=== PATIENT | female | born 1990 | race Caucasian/White ===

== ENCOUNTER 2017-04-19 11:41 | Emergency (ER) | payer MEDICAID ==
[~2017-04-19] VITALS: Ht 162.6 cm; Wt 60.0 kg
[2017-04-19 11:45] VITALS: Ht 162.6 cm; Wt 60.0 kg
[2017-04-19] MEDS ORDERED: ACET500C5 PO (12:17)
--- NOTE | 2017-04-19 12:29 | ERD ---
ER Documentation Chief Complaint Date/Time DATE: 04/19/17 TIME: 12:24 Chief Complaint Complains of ahead injury after a fall wants to be checked out HPI 27-year-old female wants to be checked for head injury. Patient states that she fell 5 days ago and hit her head in the fall. Patient stated that she was intoxicated at a time, and was wearing high heels. She fell backwards walking, and hit the back of her side on the concrete. She said that she felt very hard. She was vomiting immediately before the fall, and the next morning. The vomiting has resolved the next day after she ate some food. Denies loss of consciousness at the time of the fall. Denies lethargy or other neurological symptoms. She still has slight tenderness on the occipital part of scalp, but that has gotten better over time. ROS All systems reviewed and are negative except as per history of present illness. Medications Home Meds Active Scripts Acetaminophen* (Tylophen*) 500 Mg Capsule, 1 CAP PO Q6H Y for PAIN AND OR ELEVATED TEMP, #20 CAP Prov:BOSTON SCANLON [employer] HELPER 04/19/17 Allergies Allergies: Coded Allergies: No Known Allergy (Unverified , 04/19/17) PMhx/Soc Medical and Surgical Hx: pt denies Medical Hx, pt denies Surgical Hx Hx Alcohol Use: No Hx Substance Use: No Hx Tobacco Use: No Smoking Status: Never smoker Physical Exam Vitals Vital Signs Date Time Temp Pulse Resp B/P Pulse Ox O2 Delivery O2 Flow Rate FiO2 04/19/17 11:45 98.3 87 20 111/67 98 Physical Exam General: Patient is well-developed. Awake, alert, and conversant, in no apparent distress Skin: Warm and dry Head: Normocephalic, atraumatic without palpable deformities. Mild tenderness in the occipital part of the skull. No hematoma. Eyes: Pupils equal, round, and reactive to light. Extraocular movements intact. No periorbital ecchymosis or step-off Neck: No midline point tenderness, step-off, or deformity to firm palpation of posterior cervical spine. Trachea midline. Carotids equal. No masses. No JVD. Full range of motion of the neck without limitation or pain Chest: No surface trauma. Nontender without crepitus or deformity. No palpable subcutaneous air. Lungs have good tidal volume, lungs clear to auscultate bilaterally Heart: Regular rate and rhythm. No murmur, rub, or gallop Extremities: No surface trauma. Full range of motion without limitation or pain. Good strength in all extremities. Sensation to light touch intact. All peripheral pulses are intact and equal Neuro: Alert and oriented 4, GCS 15, cranial nerves II through XII intact. Motor and sensory exam is nonfocal. Reflexes are symmetric Procedures/MDM Well-appearing 27-year-old female presented ED after hitting her head in the fall 5 days ago. Patient did not lose consciousness. She did have some vomiting, but the vomiting has resolved. Likely the vomiting is due to alcohol intoxication. Low risk for intracranial injury. I do not feel head CT is warranted. Patient is advised to follow-up with primary care provider in 2-3 days or return to ED if there is any worsening symptoms such as vomiting or increased lethargy Departure Diagnosis: Primary Impression: Scalp contusion Condition: Good Patient Instructions: HEAD INJURY, No Wake-Up (Adult) Referrals: [facility] YOU HAVE RECEIVED A MEDICAL SCREENING EXAM AND THE RESULTS INDICATE THAT YOU DO NOT HAVE A CONDITION THAT REQUIRES URGENT TREATMENT IN THE EMERGENCY DEPARTMENT. FURTHER EVALUATION AND TREATMENT OF YOUR CONDITION CAN WAIT UNTIL YOU ARE SEEN IN YOUR DOCTORS OFFICE WITHIN THE NEXT 1-2 DAYS. IT IS YOUR RESPONSIBILITY TO MAKE AN APPOINTMENT FOR FOLOW-UP CARE. IF YOU HAVE A PRIMARY DOCTOR --you should call your primary doctor and schedule an appointment IF YOU DO NOT HAVE A PRIMARY DOCTOR YOU CAN CALL OUR PHYSICIAN REFERRAL HOTLINE AT IF YOU CAN NOT AFFORD TO SEE A PHYSICIAN YOU CAN CHOSE FROM THE FOLLOWING [facility] [address] [facility] [address] [facility] [address] [facility] [address] [facility] [address] [facility]. [facility]. [address] Additional Instructions: Call your primary care doctor TOMORROW for an appointment during the next 1 WEEK.Tell the engineering secretary that you were referred from this facility.See the doctor sooner or return here if your condition worsens before your appointment time. BOSTON SCANLON. NINFA Apr 19, 2017 12:28
== END 2017-04-19 12:36 | disposition home or self-care (01) ==
LOC: FTE 11:41
DX: S00.03XA Contusion of scalp, initial encounter (principal); R40.2412 Glasgow coma scale score 13-15, at arrival to emergency department; W01.10XA Fall on same level from slipping, tripping and stumbling with subsequent striking against unspecified object, initial encounter; Y92.9 Unspecified place or not applicable
CPT/HCPCS: 99283

== ENCOUNTER 2017-12-11 12:17 | Emergency (ER) | END 2017-12-11 13:53 | disposition home or self-care (01) ==